=== PATIENT | female | born 1995 | race African-American/Black ===

== ENCOUNTER 2017-06-01 03:15 | Emergency (ER) | payer MEDICAID, OTHER ==
[~2017-06-01] VITALS: Ht 165.1 cm; Wt 113.0 kg
[2017-06-01] MEDS ORDERED: PEN G BENZ/PEN G PROCAINE CR 1.2 MMU/2 ML IM ONE (04:15)
[2017-06-01 04:50] VITALS: BP 127/74
== END 2017-06-01 05:33 | disposition home or self-care (01) ==
LOC: ER 03:16
DX: J02.9 Acute pharyngitis, unspecified (principal); G43.909 Migraine, unspecified, not intractable, without status migrainosus; Z98.890 Other specified postprocedural states
CPT/HCPCS: 81025; 96372; 99283; J0558

== ENCOUNTER 2018-01-17 22:49 | Emergency (ER) | payer MEDICAID, OTHER ==
[~2018-01-17] VITALS: Ht 154.9 cm; Wt 117.0 kg
[2018-01-18] MEDS ORDERED: IBUPROFEN 100MG/5ML UDC PO ONE (02:15)
[2018-01-18] MEDS ORDERED: PENICILLIN G BENZATHINE 1,200,000 UNITS/2ML SYR IM ONE (02:15)
[2018-01-18 04:01] VITALS: BP 137/75
== END 2018-01-18 04:14 | disposition home or self-care (01) ==
LOC: ER 22:49
DX: J02.0 Streptococcal pharyngitis (principal)
CPT/HCPCS: 81025; 87070; 87077; 87430; 96372; 99284; J0561